=== PATIENT | female | born 1970 | race Caucasian/White ===

== ENCOUNTER 2016-12-27 11:53 | Emergency (ER) | payer BC ==
[2016-12-27 12:02] VITALS: BP 135/87
[2016-12-27] MEDS ORDERED: Sodium Chloride 0.9% 500 ML IV ONE (12:06)
[2016-12-27] MEDS ORDERED: Sodium Chloride 0.9% 10 ML Syringe FLUSH PRN (12:06)
--- NOTE | 2016-12-27 12:17 | EDM.PDOC ---
ED HPI GENERAL MEDICAL PROBLEM - General Chief Complaint: Syncope Stated Complaint: [facility] Time Seen by Provider: 12/27/16 12:03 Source of Information: Reports: Patient, RN Notes Reviewed - History of Present Illness INITIAL COMMENTS - FREE TEXT/NARRATIVE: 46-year-old female has been brought in by ambulance after suffering brief syncopal event. She had been outdoors this morning in the heat watching the parade. She and her family went early so she had been out in the heat and sunshine for about 2-2-1/2 hours. She and her family had then gone to the " dairy barn". He began feeling weak lightheaded and dizzy when standing and apparently did walk into the dairy barn and then "passed out". She states she does not remember well the part about actually walking into the dairy barn. She does remember getting weak lightheaded and dizzy outdoors. She has had some IV fluid while in route to the ED. After lying flat for a while she feels completely back to normal. She's not been having chest pain. No recent abdominal pain nausea vomiting or diarrhea. - Related Data Allergies Allergy/AdvReac Type Severity Reaction Status Date / Time Opioids - Morphine Analogues Allergy Severe Respiratory Verified 06/07/14 05:44 Distress Penicillins Allergy Severe Respiratory Verified 06/07/14 05:44 Distress Home Meds: Home Meds Montelukast [Singulair] 10 mg PO ONETIME 12/27/16 [History] Social & Family History - Tobacco Use Smoking Status *Q: Never Smoker Second Hand Smoke Exposure: No - Alcohol Use Days Per Week of Alcohol Use: 0 - Recreational Drug Use Recreational Drug Use: No ED ROS GENERAL - Review of Systems Review Of Systems: See Below Constitutional: Reports: Diaphoresis (Gone). Denies: Fever, Chills HEENT: Denies: Sinus Problem, Throat Pain Respiratory: Denies: Shortness of Breath Cardiovascular: Reports: Syncope (Brief). Denies: Chest Pain GI/Abdominal: Reports: Nausea. Denies: Abdominal Pain, Diarrhea, Vomiting (Gone ) Musculoskeletal: Denies: Neck Pain, Shoulder Pain, Arm Pain, Back Pain, Leg Pain Skin: Denies: Rash Neurological: Reports: Dizziness (Gone), Weakness (Now better) - Physical Exam Exam: See Below General Appearance: Alert, No Apparent Distress Eye Exam: Bilateral Eye: PERRL Throat/Mouth: Normal Inspection, Normal Oropharynx Head Exam: Atraumatic Neck: Supple, Non-Tender, Full Range of Motion Respiratory/Chest: No Respiratory Distress, Lungs Clear, Normal Breath Sounds Cardiovascular: Regular Rate, Rhythm GI/Abdominal: Soft, Non-Tender. No: Guarding Neuro Exam (Abbreviated): Alert, Oriented, No Motor/Sensory Deficits Back Exam: No: CVA Tenderness (L), CVA Tenderness (R) Extremities: Normal Inspection, Normal Range of Motion Skin Exam: Warm, Dry, Normal Color Course - Vital Signs Last Recorded V/S: Last Vital Signs Temp 98.8 F 12/27/16 11:59 Pulse 99 12/27/16 11:59 Resp 18 12/27/16 11:59 BP 135/87 12/27/16 11:59 Pulse Ox 99 12/27/16 11:59 - Orders/Labs/Meds Orders: Active Orders 24 hr Category Date Time Status Peripheral IV Care [RC] . DIRECTED Care 12/27/16 12:07 Active Sodium Chloride 0.9% [Saline Flush] Med 12/27/16 12:06 Active 10 ml FLUSH ASDIRECTED PRN Peripheral IV Insertion Adult [OM.PC] Stat Oth 12/27/16 12:06 Ordered Medication Orders Sodium Chloride (Saline Flush) 10 ml FLUSH ASDIRECTED PRN PRN Reason: Keep Vein Open Last Admin: 12/27/16 12:20 Dose: 10 ml Labs: Laboratory Tests 12/27/16 12/27/16 Range/Units 12:37 12:37 WBC 8.49 (3.98-10.04) K/mm3 RBC 4.10 (3.98-5.22) M/mm3 Hgb 11.7 (11.2-15.7) gm/L Hct 35.7 (34.1-44.9) % MCV 87.1 (79.4-94.8) fl MCH 28.5 (25.6-32.2) pg MCHC 32.8 (32.2-35.5) g/dl RDW Std Deviation 47.2 H (36.4-46.3) fL Plt Count 249 (182-369) K/mm3 MPV 10.8 (9.4-12.3) fl Neut % (Auto) 71.8 H (34.0-71.1) % Lymph % (Auto) 20.3 (19.3-51.7) % Coffey % (Auto) 6.2 (4.7-12.5) % Eos % (Auto) 1.2 (0.7-5.8) Baso % (Auto) 0.4 (0.1-1.2) % Neut # (Auto) 6.10 (1.56-6.13) K/mm3 Lymph # (Auto) 1.72 (1.18-3.74) K/mm3 Coffey # (Auto) 0.53 H (0.24-0.36) K/mm3 Eos # (Auto) 0.10 (0.04-0.36) K/mm3 Baso # (Auto) 0.03 (0.01-0.08) K/mm3 Sodium 137 (136-145) mEq/L Potassium 3.7 (3.5-5.1) mEq/L Chloride 104 (98-107) mEq/L Carbon Dioxide 21 (21-32) mEq/L Anion Gap 15.7 H (5-15) BUN 8 (7-18) mg/dL Creatinine 1.2 H (0.55-1.02) mg/dL Est Cr Clr Drug Dosing 64.69 mL/min Estimated GFR (MDRD) 49 (>60) mL/min BUN/Creatinine Ratio 6.7 L (14-18) Glucose 102 (74-106) mg/dL Calcium 8.0 L (8.5-10.1) mg/dL Total Bilirubin 0.4 (0.2-1.0) mg/dL AST 16 (15-37) U/L ALT 25 (14-59) U/L Alkaline Phosphatase 39 L (46-116) U/L Total Protein 6.9 (6.4-8.2) g/dl Albumin 3.6 (3.4-5.0) g/dl Globulin 3.3 gm/dL Albumin/Globulin Ratio 1.1 (1-2) Meds: Medications Generic Name Dose Route Start Last Admin Trade Name Freq PRN Reason Stop Dose Admin Sodium Chloride 10 ml 12/27/16 12:06 12/27/16 12:20 Saline Flush FLUSH 10 ml ASDIRECTED PRN Administration Keep Vein Open Discontinued Medications Generic Name Dose Route Start Last Admin Trade Name Freq PRN Reason Stop Dose Admin Sodium Chloride 500 mls @ 999 mls/hr 12/27/16 12:06 12/27/16 12:20 Normal Saline IV 12/27/16 12:36 999 mls/hr .BOLUS ONE Administration - Re-Assessments/Exams Free Text/Narrative Re-Assessment/Exam: 12/27/16 13:44. Resting comfortably, vitals remained normal. Sinus rhythm no ectopy. Departure - Departure Time of Disposition: 13:44 Disposition: Home, Self-Care 01 Condition: Fair Clinical Impression: Dehydration Syncope Qualifiers: Syncope type: unspecified Qualified Code(s): R55 - Syncope and collapse - Discharge Information Forms: ED Department Discharge Additional Instructions: Rest, avoid additional heat exposure today, drink plenty of water to maintain hydration. Your hemoglobin was mildly low at 11.7. an iron supplement once or twice daily should be helpful for that. Follow-up clinic in about 2 weeks for recheck. Return to ED as needed - My Orders Last 24 Hours: My Active Orders 12/27/16 12:06 Sodium Chloride 0.9% [Saline Flush] 10 ml FLUSH ASDIRECTED PRN Peripheral IV Insertion Adult [OM.PC] Stat 12/27/16 12:07 Peripheral IV Care [RC] . DIRECTED - Assessment/Plan Last 24 Hours: My Active Orders 12/27/16 12:06 Sodium Chloride 0.9% [Saline Flush] 10 ml FLUSH ASDIRECTED PRN Peripheral IV Insertion Adult [OM.PC] Stat 12/27/16 12:07 Peripheral IV Care [RC] . DIRECTED
== END 2016-12-27 14:00 | disposition home or self-care (01) ==
LOC: JD.ED 11:53
DX: E86.0 Dehydration (principal); R55 Syncope and collapse; Z88.0 Allergy status to penicillin; Z88.5 Allergy status to narcotic agent
CPT/HCPCS: 36415; 80053; 85025; 99285; J7040; J7050; 99283

== ENCOUNTER 2021-10-02 18:11 | Emergency (ER) | payer BC, OTHER ==
[2021-10-02 18:21] VITALS: BP 149/123; PULSE 117
[2021-10-02] MEDS ORDERED: Sodium Chloride 0.9% 1,000 ML IV STA (18:30)
[2021-10-02] MEDS ORDERED: Ondansetron 4 MG/2 ML SDV IVPUSH ONE ×2 (18:30→19:24)
[2021-10-02] MEDS ORDERED: HYDROmorphone 1 MG/ML Syringe IVPUSH ONE (18:33)
[2021-10-02] MEDS ORDERED: Iopamidol 612 MG/ML 100 ML Bottle IVPUSH ONE (18:36)
[2021-10-02] MEDS ORDERED: Sodium Chloride 0.9% 10 ML Syringe FLUSH ONE (18:36)
[2021-10-02] MEDS: Sodium Chloride 0.9% 10 ML Syringe FLUSH PRN ×2 (18:43→20:18)
[2021-10-02] MEDS ORDERED: Sodium Chloride 0.9% 100 ML IV SCH (18:45)
[2021-10-02 19:14] LABS: CORONAVIRUS COVID-19 NAA NEGATIVE (NEGATIVE)
[2021-10-02] MEDS ORDERED: LORazepam 2 MG/ML SDV IVPUSH STA (19:28)
[2021-10-02] MEDS ORDERED: HYDROmorphone 0.5 MG/0.5 ML Syringe IVPUSH ONE (19:28)
== END 2021-10-02 21:00 | disposition home or self-care (01) ==
LOC: JD.ED 18:11
DX: A08.4 Viral intestinal infection, unspecified (principal); F41.9 Anxiety disorder, unspecified; R73.9 Hyperglycemia, unspecified; Z88.0 Allergy status to penicillin; Z88.5 Allergy status to narcotic agent; Z20.822 Contact with and (suspected) exposure to COVID-19
CPT/HCPCS: 0241U; 36415; 74177; 74177-26; 80053; 81001; 83690; 85025; 87086; 96374; 96375; 96376; 99284-25; 99285; J1170; J2060; J2405; J3490; J7030; Q9967

== ENCOUNTER 2021-10-03 05:52 | Emergency (ER) | payer BC ==
[2021-10-03 06:02] VITALS: BP 139/74; PULSE 109
[2021-10-03] MEDS ORDERED: Metoclopramide 10 MG/2 ML SDV IVPUSH STA (06:07)
[2021-10-03] MEDS ORDERED: LORazepam 2 MG/ML SDV IVPUSH STA (06:07)
[2021-10-03] MEDS ORDERED: Sodium Chloride 0.9% 1,000 ML IV ONE (06:08)
== END 2021-10-03 07:55 | disposition home or self-care (01) ==
LOC: JD.ED 05:52
DX: R10.30 Lower abdominal pain, unspecified (principal); R11.2 Nausea with vomiting, unspecified; E66.9 Obesity, unspecified; Z68.30 Body mass index [BMI] 30.0-30.9, adult; Z88.0 Allergy status to penicillin; Z88.5 Allergy status to narcotic agent; Z28.310 Unvaccinated for COVID-19
CPT/HCPCS: 96374; 96375; 99283-25; 99284; J2060; J2765; J7030

== ENCOUNTER 2022-04-16 01:27 | Emergency (ER) | payer BC ==
[2022-04-16] MEDS ORDERED: LORazepam 2 MG/ML SDV IVPUSH STA (02:18)
[2022-04-16] MEDS ORDERED: Sodium Chloride 0.9% 1,000 ML IV ONE (02:18)
[2022-04-16] MEDS ORDERED: Metoclopramide 10 MG/2 ML SDV IVPUSH STA (02:18)
[2022-04-16 04:16] VITALS: BP 187/111; PULSE 97
== END 2022-04-16 04:33 | disposition home or self-care (01) ==
LOC: JD.ED 01:27
DX: F41.9 Anxiety disorder, unspecified (principal); R11.2 Nausea with vomiting, unspecified; E66.9 Obesity, unspecified; Z68.27 Body mass index [BMI] 27.0-27.9, adult; Z88.0 Allergy status to penicillin; Z88.6 Allergy status to analgesic agent; Z86.16 Personal history of COVID-19
CPT/HCPCS: 96361; 96374; 96375; 99283; J2060; J2765; J7030

== ENCOUNTER 2022-05-15 08:10 | Inpatient (IN) | payer BC ==
[2022-05-15] MEDS ORDERED: Acetaminophen/HYDROcodone 325-5 MG Tab PO ONE (10:41)
[2022-05-15] MEDS ORDERED: LORazepam 2 MG/ML SDV ONE (12:20)
[2022-05-15] MEDS ORDERED: Sodium Chloride 0.9% 10 ML Syringe FLUSH PRN (12:29)
[2022-05-15] MEDS ORDERED: LORazepam 2 MG/ML SDV IVPUSH ONE (12:29)
[2022-05-15] MEDS ORDERED: Ondansetron 4 MG/2 ML SDV IV PRN (15:56)
[2022-05-15] MEDS ORDERED: Acetaminophen 325 MG Tab PO PRN (15:56)
[2022-05-15] MEDS ORDERED: LORazepam 2 MG/ML SDV IVPUSH PRN ×2 (15:59→16:00)
[2022-05-15] MEDS ORDERED: Citalopram 20 MG Tab PO SCH (18:00)
[2022-05-15] MEDS: Folic Acid 1 MG Tab PO SCH (18:33)
[2022-05-15] MEDS: chlordiazePOXIDE 10 MG Cap PO SCH (18:33)
[2022-05-15] MEDS: Thiamine 100 MG Tab PO SCH (18:34)
[2022-05-15] MEDS: NS + KCl 20mEq/L 1,000 ML IV SCH (18:38)
[2022-05-15] MEDS: Diphenhydramine/Lidocaine/MagAl/Simethicone 119 ML Bottle PO PRN (20:37)
[2022-05-16] MEDS: Diphenhydramine/Lidocaine/MagAl/Simethicone 119 ML Bottle PO PRN ×3 (00:10→09:10)
[2022-05-16] MEDS: chlordiazePOXIDE 10 MG Cap PO SCH (01:43)
[2022-05-16] MEDS: NS + KCl 20mEq/L 1,000 ML IV SCH (02:06)
[2022-05-16] MEDS: Losartan 50 MG Tab PO SCH ×2 (06:26→08:29)
[2022-05-16] MEDS: Folic Acid 1 MG Tab PO SCH (08:28)
[2022-05-16] MEDS: Thiamine 100 MG Tab PO SCH (08:29)
[2022-05-16] MEDS ORDERED: Gabapentin 100 MG Cap PO SCH (09:00)
[2022-05-16] MEDS ORDERED: Citalopram 20 MG Tab PO SCH (09:00)
[2022-05-16] MEDS ORDERED: Venlafaxine 75 MG Cap.ER PO SCH (09:00)
[2022-05-16] MEDS ORDERED: Montelukast 10 MG Tab PO SCH (09:00)
[2022-05-16 12:16] VITALS: BP 177/136; PULSE 85
== END 2022-05-16 13:10 | disposition home or self-care (01) | DRG 775 ==
LOC: JD.ED 08:10 → JD.ICU 15:35
PROVIDERS: ADMIT Internal Medicine; ATTEND Internal Medicine
DX: F10.239 Alcohol dependence with withdrawal, unspecified (principal); R56.9 Unspecified convulsions; S00.83XA Contusion of other part of head, initial encounter; S01.512A Laceration without foreign body of oral cavity, initial encounter; F41.0 Panic disorder [episodic paroxysmal anxiety]; Z88.5 Allergy status to narcotic agent; Z88.0 Allergy status to penicillin; Z79.899 Other long term (current) drug therapy; Z86.16 Personal history of COVID-19; X58.XXXA Exposure to other specified factors, initial encounter
CPT/HCPCS: 36415; 70450; 70450-26; 80048; 80053; 80306; 80307; 83735; 84100; 85025; 93005; A9270-GY; J2060; J3480

== ENCOUNTER 2022-11-08 18:07 | Inpatient (IN) | payer BC ==
[2022-11-08] MEDS ORDERED: Sodium Chloride 0.9% 1,000 ML IV ONE ×2 (18:27→19:38)
[2022-11-08] MEDS ORDERED: Ondansetron 4 MG/2 ML SDV IVPUSH ONE (18:27)
[2022-11-08] MEDS ORDERED: Sodium Chloride 0.9% 10 ML Syringe FLUSH PRN (18:27)
[2022-11-08] MEDS ORDERED: LORazepam 2 MG/ML SDV IVPUSH ONE (18:29)
[2022-11-08 18:36] LABS: EOSINOPHILS PERCENT AUTO 0 (0.7-5.8); HEMATOCRIT 45.9 % (34.1-44.9); HEMOGLOBIN 15.8 gm/dl (11.2-15.7); IMMATURE GRAN ABSOLUTE AUTO 0.04 K/mm3 (0.00-0.10); IMMATURE GRAN PERCENT AUTO 0.3 % (<=1.0); LYMPHOCYTES ABSOLUTE AUTO 0.46 K/mm3 (1.18-3.74); LYMPHOCYTES PERCENT AUTO 3.6 % (19.3-51.7); MEAN CORPUSCULAR HEMOGLOBIN 33.3 pg (25.6-32.2); MEAN CORPUSCULAR HGB CONC 34.4 g/dl (32.2-35.5); MEAN CORPUSCULAR VOLUME 96.8 fl (79.4-94.8); MEAN PLATELET VOLUME 11.2 fl (9.4-12.3); MONOCYTES ABSOLUTE AUTO 1.09 K/mm3 (0.24-0.36); MONOCYTES PERCENT AUTO 8.4 % (4.7-12.5); NEUTROPHILS ABSOLUTE AUTO 11.33 K/mm3 (1.56-6.13); NEUTROPHILS PERCENT AUTO 87.7 % (34.0-71.1); PLATELET COUNT,PLT 170 K/mm3 (182-369); RED BLOOD CELL COUNT 4.74 M/mm3 (3.98-5.22); WHITE BLOOD CELL COUNT,WBC 12.92 K/mm3 (3.98-10.04)
[2022-11-08] MEDS ORDERED: Iopamidol 612 MG/ML 100 ML Bottle IVPUSH ONE ×2 (18:42→19:16)
[2022-11-08 19:01] LABS: ALANINE AMINOTRANSFERASE,ALT 140 U/L (14-59); ALBUMIN 4.3 g/dl (3.4-5.0); ALKALINE PHOSPHATASE 81 U/L (46-116); ANION GAP 17.8 (5-15); ASPARTATE AMNIOTRANSFERASE,AST 129 U/L (15-37); BILIRUBIN TOTAL 4.2 mg/dL (0.2-1.0); BLOOD UREA NITROGEN,BUN 10 mg/dL (7-18); CALCIUM 9.7 mg/dL (8.5-10.1); CARBON DIOXIDE,CO2 26 mEq/L (21-32); CHLORIDE,CL 91 mEq/L (98-107); ESTIMATED GFR 69 mL/min (>60); GLUCOSE RANDOM 165 mg/dL (70-99); MAGNESIUM 1.3 mg/dL (1.8-2.4); POTASSIUM,K 2.8 mEq/L (3.5-5.1); SODIUM,NA 132 mEq/L (136-145)
[2022-11-08 19:04] LABS: C-REACTIVE PROTEIN 12.9 mg/dL (<1.0)
[2022-11-08 19:30] LABS: LIPASE 2878 U/L (73-393)
[2022-11-08] MEDS ORDERED: Magnesium Sulfate/Water 2 GM in Premix Bag 1 BAG IV ONE (19:33)
[2022-11-08] MEDS ORDERED: Ketorolac 30 MG/ML SDV IVPUSH ONE (19:33)
[2022-11-08] MEDS ORDERED: HYDROmorphone 0.5 MG/0.5 ML Syringe IVPUSH ONE (19:43)
[2022-11-08] MEDS: Potassium Chloride 10 MEQ in Premix Bag 1 BAG IV SCH ×4 (19:49→23:35)
[2022-11-08 19:54] LABS: GAMMA GLUTAMYL TRANSFERASE,GGT 2329 U/L (5-55)
[2022-11-08 19:56] LABS: PROTEIN TOTAL,TP 8.7 g/dl (6.4-8.2)
[2022-11-08] MEDS ORDERED: Sodium Chloride 0.9% 1,000 ML IV SCH (20:45)
[2022-11-08] MEDS: Ondansetron 4 MG/2 ML SDV IV PRN (23:00)
[2022-11-08] MEDS: HYDROmorphone 0.5 MG/0.5 ML Syringe IVPUSH PRN (23:00)
[2022-11-09] MEDS: Thiamine 100 MG in Sodium Chloride 0.9% 100 ML IV SCH ×2 (00:53→08:08)
[2022-11-09] MEDS: HYDROmorphone 0.5 MG/0.5 ML Syringe IVPUSH PRN ×10 (01:09→23:43)
[2022-11-09] MEDS: NS + KCl 20mEq/L 1,000 ML IV SCH ×3 (01:30→17:15)
[2022-11-09] MEDS: Ondansetron 4 MG/2 ML SDV IV PRN ×3 (05:30→19:42)
[2022-11-09 05:54] LABS: HEMATOCRIT 40.7 % (34.1-44.9); MEAN CORPUSCULAR HEMOGLOBIN 33.6 pg (25.6-32.2); MEAN CORPUSCULAR HGB CONC 33.7 g/dl (32.2-35.5); MEAN CORPUSCULAR VOLUME 99.8 fl (79.4-94.8); MEAN PLATELET VOLUME 11.4 fl (9.4-12.3); PLATELET COUNT,PLT 126 K/mm3 (182-369); RED BLOOD CELL COUNT 4.08 M/mm3 (3.98-5.22)
[2022-11-09 05:58] LABS: A/G RATIO 0.9 (1-2); ALBUMIN 3.1 g/dl (3.4-5.0); BILIRUBIN TOTAL 3.4 mg/dL (0.2-1.0); CREATININE 0.7 mg/dL (0.55-1.02); EST CRCL DRUG DOSING (CG) 103.97 mL/min; MAGNESIUM 1.8 mg/dL (1.8-2.4); PROTEIN TOTAL,TP 6.5 g/dl (6.4-8.2)
[2022-11-09 05:59] LABS: HEMOGLOBIN 13.7 gm/dl (11.2-15.7)
[2022-11-09] MEDS ORDERED: Potassium Chloride 20 MEQ Tab.ER PO ONE (06:25)
[2022-11-09] MEDS: Potassium Chloride 10 MEQ in Premix Bag 1 BAG IV SCH ×4 (06:41→10:10)
[2022-11-09] MEDS: Enoxaparin 40 MG/0.4 ML Syringe SUBCUT SCH (08:05)
[2022-11-09] MEDS: Montelukast 10 MG Tab PO SCH (09:03)
[2022-11-09] MEDS: Venlafaxine 75 MG Cap.ER PO SCH (09:03)
[2022-11-09] MEDS: oxyCODONE 5 MG Tab PO PRN ×3 (11:42→20:40)
[2022-11-09] MEDS: LORazepam 2 MG/ML SDV IV PRN ×2 (12:26→16:23)
[2022-11-09] MEDS: Thiamine 100 MG Tab PO SCH ×2 (19:38→21:52)
[2022-11-09] MEDS: LORazepam 1 MG Tab PO PRN ×2 (20:34→22:29)
[2022-11-09] MEDS ORDERED: LORazepam 0.5 MG Tab PO SCH (22:00)
[2022-11-10] MEDS: oxyCODONE 5 MG Tab PO PRN ×3 (01:19→20:29)
[2022-11-10] MEDS: LORazepam 1 MG Tab PO PRN ×3 (01:20→22:54)
[2022-11-10] MEDS: Ondansetron 4 MG/2 ML SDV IV PRN ×3 (01:21→17:00)
[2022-11-10] MEDS: NS + KCl 20mEq/L 1,000 ML IV SCH ×3 (01:22→20:34)
[2022-11-10] MEDS: HYDROmorphone 0.5 MG/0.5 ML Syringe IVPUSH PRN ×8 (01:50→22:50)
[2022-11-10 06:02] LABS: HEMATOCRIT 41.7 % (34.1-44.9); HEMOGLOBIN 13.4 gm/dl (11.2-15.7); MEAN CORPUSCULAR HEMOGLOBIN 33.3 pg (25.6-32.2); MEAN CORPUSCULAR HGB CONC 32.1 g/dl (32.2-35.5); MEAN PLATELET VOLUME 11.9 fl (9.4-12.3); PLATELET COUNT,PLT 117 K/mm3 (182-369); RED BLOOD CELL COUNT 4.02 M/mm3 (3.98-5.22); WHITE BLOOD CELL COUNT,WBC 13.36 K/mm3 (3.98-10.04)
[2022-11-10 06:05] LABS: A/G RATIO 0.7 (1-2); ALBUMIN 2.9 g/dl (3.4-5.0); BILIRUBIN TOTAL 3.4 mg/dL (0.2-1.0); CREATININE 0.7 mg/dL (0.55-1.02); EST CRCL DRUG DOSING (CG) 103.97 mL/min; MAGNESIUM 1.8 mg/dL (1.8-2.4); PROTEIN TOTAL,TP 7.1 g/dl (6.4-8.2)
[2022-11-10 06:06] LABS: MEAN CORPUSCULAR VOLUME 103.7 fl (79.4-94.8)
[2022-11-10] MEDS: Venlafaxine 75 MG Cap.ER PO SCH (08:17)
[2022-11-10] MEDS: Montelukast 10 MG Tab PO SCH (08:17)
[2022-11-10] MEDS: Enoxaparin 40 MG/0.4 ML Syringe SUBCUT SCH (08:17)
[2022-11-10] MEDS ORDERED: Thiamine 200 MG/2 ML MDV IVPUSH SCH (09:00)
[2022-11-10] MEDS ORDERED: Docusate Sodium 100 MG Cap PO PRN (10:48)
[2022-11-10] MEDS: Polyethylene Glycol 3350 Powder 17 GM Packet PO SCH (11:29)
[2022-11-10 14:32] LABS: APPEARANCE,URINE SLT CLOUDY (Clear); BILIRUBIN,URINE 3+ (Negative); COLOR,URINE AMBER (Yellow); GLUCOSE,URINE NEGATIVE (Negative); KETONES,URINE 1+ (Negative); LEUKOCYTE ESTERASE,URINE 1+ (Negative); NITRITE,URINE NEGATIVE (Negative); OCCULT BLOOD,URINE TRACE-INTACT (Negative); PROTEIN,URINE 2+ (Negative)
[2022-11-10 14:58] LABS: BACTERIA,URINE MODERATE /hpf (FEW); MUCUS,URINE RARE /hpf (FEW); RBC,URINE 0-5 /hpf (0-5); SQUAMOUS EPITHELIAL CELLS,UR 0-5 /hpf (0-5); WBC,URINE 40-50 /hpf (0-5)
[2022-11-10] MEDS ORDERED: Levofloxacin/Dextrose 5%-Water 750 MG in Premix Bag 1 BAG IV SCH (15:00)
[2022-11-10] MEDS: Thiamine 100 MG Tab PO SCH (20:30)
[2022-11-11] MEDS: HYDROmorphone 0.5 MG/0.5 ML Syringe IVPUSH PRN ×4 (02:31→16:57)
[2022-11-11 05:59] LABS: A/G RATIO 0.7 (1-2); ALBUMIN 2.6 g/dl (3.4-5.0); ANION GAP 12.4 (5-15); BILIRUBIN TOTAL 3.9 mg/dL (0.2-1.0); CALCIUM 8.3 mg/dL (8.5-10.1); CREATININE 0.6 mg/dL (0.55-1.02); EST CRCL DRUG DOSING (CG) 121.3 mL/min; MAGNESIUM 1.7 mg/dL (1.8-2.4); POTASSIUM,K 3.4 mEq/L (3.5-5.1); PROTEIN TOTAL,TP 6.5 g/dl (6.4-8.2)
[2022-11-11] MEDS: oxyCODONE 5 MG Tab PO PRN ×4 (06:02→20:42)
[2022-11-11 06:05] LABS: HEMATOCRIT 36.5 % (34.1-44.9); MEAN CORPUSCULAR HEMOGLOBIN 33.2 pg (25.6-32.2); MEAN CORPUSCULAR HGB CONC 32.6 g/dl (32.2-35.5); MEAN PLATELET VOLUME 11.7 fl (9.4-12.3); PLATELET COUNT,PLT 123 K/mm3 (182-369); RED BLOOD CELL COUNT 3.58 M/mm3 (3.98-5.22); WHITE BLOOD CELL COUNT,WBC 9.95 K/mm3 (3.98-10.04)
[2022-11-11 06:15] LABS: HEMOGLOBIN 11.9 gm/dl (11.2-15.7)
[2022-11-11] MEDS ORDERED: Magnesium Sulfate/Water 2 GM in Premix Bag 1 BAG IV ONE (06:26)
[2022-11-11] MEDS: Enoxaparin 40 MG/0.4 ML Syringe SUBCUT SCH (08:27)
[2022-11-11] MEDS: Potassium Chloride 20 MEQ Tab.ER PO SCH ×2 (08:28→20:42)
[2022-11-11] MEDS: Polyethylene Glycol 3350 Powder 17 GM Packet PO SCH (08:29)
[2022-11-11] MEDS: Montelukast 10 MG Tab PO SCH (08:29)
[2022-11-11] MEDS: Venlafaxine 75 MG Cap.ER PO SCH (08:29)
[2022-11-11] MEDS ORDERED: hydrALAZINE 20 MG/ML SDV IVPUSH ONE ×2 (08:30→16:23)
[2022-11-11] MEDS: Ondansetron 4 MG/2 ML SDV IV PRN ×2 (08:30→14:54)
[2022-11-11] MEDS: amLODIPine 5 MG Tab PO SCH (08:45)
[2022-11-11] MEDS: LORazepam 1 MG Tab PO PRN (10:08)
[2022-11-11] MEDS: Levofloxacin 750 MG Tab PO SCH (15:16)
[2022-11-11] MEDS ORDERED: Prochlorperazine 10 MG/2 ML SDV IVPUSH PRN (17:41)
[2022-11-11] MEDS: Thiamine 100 MG Tab PO SCH (20:42)
[2022-11-12] MEDS: LORazepam 1 MG Tab PO PRN (00:26)
[2022-11-12 00:29] VITALS: PULSE 97
[2022-11-12 07:46] LABS: A/G RATIO 0.6 (1-2); ALBUMIN 2.3 g/dl (3.4-5.0); ANION GAP 13.1 (5-15); CALCIUM 8.3 mg/dL (8.5-10.1); CREATININE 0.5 mg/dL (0.55-1.02); EST CRCL DRUG DOSING (CG) 145.56 mL/min; POTASSIUM,K 3.1 mEq/L (3.5-5.1); PROTEIN TOTAL,TP 6.2 g/dl (6.4-8.2)
[2022-11-12] MEDS: Venlafaxine 75 MG Cap.ER PO SCH (08:26)
[2022-11-12] MEDS: Montelukast 10 MG Tab PO SCH (08:35)
[2022-11-12] MEDS: Polyethylene Glycol 3350 Powder 17 GM Packet PO SCH ×2 (08:35→09:01)
[2022-11-12] MEDS: amLODIPine 5 MG Tab PO SCH (08:36)
[2022-11-12] MEDS: Enoxaparin 40 MG/0.4 ML Syringe SUBCUT SCH (08:36)
[2022-11-12 08:37] VITALS: BP 195/114
[2022-11-12] MEDS ORDERED: Potassium Chloride 20 MEQ Tab.ER PO SCH (09:00)
[2022-11-12] MEDS ORDERED: hydrALAZINE 20 MG/ML SDV IVPUSH ONE (13:30)
[2022-11-12] MEDS: Levofloxacin 750 MG Tab PO SCH (16:19)
== END 2022-11-12 16:00 | disposition home or self-care (01) | DRG 282 ==
LOC: JD.ED 18:07 → JD.MS 20:18
PROVIDERS: ADMIT Internal Medicine; ATTEND Internal Medicine
DX: K85.20 Alcohol induced acute pancreatitis without necrosis or infection (principal); E87.1 Hypo-osmolality and hyponatremia; F41.1 Generalized anxiety disorder; E87.6 Hypokalemia; E83.42 Hypomagnesemia; F10.10 Alcohol abuse, uncomplicated; E66.9 Obesity, unspecified; K76.0 Fatty (change of) liver, not elsewhere classified; Z79.899 Other long term (current) drug therapy; Z88.0 Allergy status to penicillin; Z88.5 Allergy status to narcotic agent; Z68.28 Body mass index [BMI] 28.0-28.9, adult; Z98.890 Other specified postprocedural states; Z90.89 Acquired absence of other organs; Z56.0 Unemployment, unspecified
CPT/HCPCS: 36415; 71045; 71045-26; 74177; 74177-26; 80053; 80307; 81001; 82947; 82977; 83690; 83735; 85025; 85027; 86140; 87086; 94761; 96361; 96365; 96368; 96375; 99284; 99285-25; A9270-GY; J0360; J0780; J1170; J1650; J1885; J1956; J2060; J2405; J3411; J3475; J3480; J3490; J7030; Q9967

== ENCOUNTER 2023-07-31 07:50 | Inpatient (IN) | payer BC, MEDICAID ==
[2023-07-31] MEDS: Sodium Chloride 0.9% 1,000 ML IV STA (08:15)
[2023-07-31] MEDS: Sodium Chloride 0.9% 10 ML Syringe FLUSH PRN ×2 (08:15→08:16)
[2023-07-31] MEDS: Ondansetron 4 MG/2 ML SDV IVPUSH ONE (08:26)
[2023-07-31] MEDS: HYDROmorphone 1 MG/ML Syringe IVPUSH ONE ×2 (08:26→14:01)
[2023-07-31 08:33] LABS: BASOPHILS PERCENT AUTO 0.2 % (0.0-1.0); EOSINOPHILS PERCENT AUTO 0.3 % (0.0-6.0); HEMATOCRIT 46.1 % (37.0-47.0); HEMOGLOBIN 16.5 gm/dl (12.0-16.0); LYMPHOCYTES ABSOLUTE AUTO 0.5 K/mm3 (1.0-4.8); LYMPHOCYTES PERCENT AUTO 4.7 % (24.0-44.0); MEAN CORPUSCULAR HEMOGLOBIN 33.3 pg (28.0-32.0); MEAN CORPUSCULAR HGB CONC 35.8 g/dl (32.0-36.0); MEAN CORPUSCULAR VOLUME 92.9 fl (83.0-99.0); MEAN PLATELET VOLUME 11.6 fl (9.4-12.3); MONOCYTES ABSOLUTE AUTO 0.6 K/mm3 (0.0-0.8); MONOCYTES PERCENT AUTO 5.8 % (0.0-8.0); PLATELET COUNT,PLT 177 K/mm3 (150-400); RED BLOOD CELL COUNT 4.96 M/mm3 (4.10-5.30); WHITE BLOOD CELL COUNT,WBC 10.18 K/mm3 (3.9-11.3)
[2023-07-31] MEDS: Iopamidol 612 MG/ML 100 ML Bottle IVPUSH ONE (08:42)
[2023-07-31 08:47] LABS: A/G RATIO 1.1 (1-2); ALBUMIN 4.6 g/dl (3.4-5.0); BILIRUBIN TOTAL 3.8 mg/dL (0.2-1.0); BUN/CREATININE RATIO 12.2 (14-18); CALCIUM 9.8 mg/dL (8.5-10.1); CREATININE 0.9 mg/dL (0.55-1.02); EST CRCL DRUG DOSING (CG) 79.97 mL/min; PROTEIN TOTAL,TP 8.7 g/dl (6.4-8.2)
[2023-07-31] MEDS: HYDROmorphone 0.5 MG/0.5 ML Syringe IVPUSH ONE (09:39)
[2023-07-31] MEDS ORDERED: LORazepam 0.5 MG Tab PO PRN (10:01)
[2023-07-31] MEDS ORDERED: oxyCODONE 5 MG Tab PO PRN (10:01)
[2023-07-31 10:16] LABS: MAGNESIUM 1.6 mg/dL (1.8-2.4); PHOSPHORUS 3.5 mg/dL (2.6-4.7)
[2023-07-31 10:33] LABS: CORONAVIRUS COVID-19 NAA NEGATIVE (NEGATIVE); INFLUENZA A NAA NEGATIVE (NEGATIVE)
[2023-07-31 10:37] LABS: HEMOGLOBIN A1C 6.8 %
[2023-07-31] MEDS: oxyCODONE 5 MG Tab PO PRN (11:32)
[2023-07-31] MEDS: Potassium Chloride 10 MEQ in Premix Bag 1 BAG IV ONE (11:32)
[2023-07-31] MEDS: Montelukast 10 MG Tab PO SCH (11:32)
[2023-07-31] MEDS: Sodium Chloride 0.9% 1,000 ML IV SCH (11:33)
[2023-07-31] MEDS: Venlafaxine 75 MG Cap.ER PO SCH (11:33)
[2023-07-31] MEDS: Pantoprazole 40 MG Vial IVPUSH SCH (11:33)
[2023-07-31] MEDS: Insulin Lispro 100 Unit/ML 3 ML KwikPen SUBCUT SCH (11:34)
[2023-07-31 12:01] LABS: APPEARANCE,URINE CLEAR (Clear); BILIRUBIN,URINE 2+ (Negative); COLOR,URINE DARK YELLOW (Yellow); GLUCOSE,URINE NEGATIVE (Negative); KETONES,URINE 4+ (Negative); LEUKOCYTE ESTERASE,URINE NEGATIVE (Negative); NITRITE,URINE NEGATIVE (Negative); OCCULT BLOOD,URINE TRACE-LYSED (Negative); PROTEIN,URINE 1+ (Negative); UROBILINOGEN,URINE 0.2 (0.2-1.0)
[2023-07-31 12:08] LABS: AMORPHOUS SEDIMENT,URINE FEW /hpf (NOT SEEN); BACTERIA,URINE FEW /hpf (FEW); EPITHELIAL CELLS,URINE 0-5 /hpf (0-5); MUCUS,URINE MODERATE /hpf (FEW); WBC,URINE 0-5 /hpf (0-5)
[2023-07-31] MEDS: HYDROmorphone 0.5 MG/0.5 ML Syringe IVPUSH PRN (12:42)
[2023-07-31] MEDS: Ondansetron 4 MG Tab.DIS PO PRN (12:43)
[2023-07-31] MEDS: valACYclovir 500 MG Tab PO SCH (16:20)
[2023-07-31] MEDS: Acetaminophen 325 MG Tab PO PRN (20:27)
[2023-07-31] MEDS: HYDROmorphone 1 MG/ML Syringe IVPUSH PRN (22:03)
[2023-07-31] MEDS: Zolpidem 10 MG Tab PO SCH (23:43)
[2023-08-01 05:32] LABS: HEMATOCRIT 43.1 % (37.0-47.0); MEAN CORPUSCULAR HEMOGLOBIN 33.3 pg (28.0-32.0); MEAN CORPUSCULAR HGB CONC 34.3 g/dl (32.0-36.0); MEAN PLATELET VOLUME 11.4 fl (9.4-12.3); PLATELET COUNT,PLT 129 K/mm3 (150-400); RED BLOOD CELL COUNT 4.44 M/mm3 (4.10-5.30); WHITE BLOOD CELL COUNT,WBC 12.87 K/mm3 (3.9-11.3)
[2023-08-01 05:35] LABS: HEMOGLOBIN 14.8 gm/dl (12.0-16.0); MEAN CORPUSCULAR VOLUME 97.1 fl (83.0-99.0)
[2023-08-01 06:02] LABS: A/G RATIO 0.9 (1-2); ALBUMIN 3.3 g/dl (3.4-5.0); ANION GAP 17.2 (5-15); BILIRUBIN TOTAL 3.1 mg/dL (0.2-1.0); BUN/CREATININE RATIO 12.9 (14-18); CALCIUM 8.5 mg/dL (8.5-10.1); CREATININE 0.7 mg/dL (0.55-1.02); EST CRCL DRUG DOSING (CG) 102.82 mL/min; POTASSIUM,K 3.2 mEq/L (3.5-5.1)
[2023-08-01] MEDS: amLODIPine 5 MG Tab PO SCH (08:08)
[2023-08-01] MEDS ORDERED: hydrALAZINE 20 MG/ML SDV IVPUSH PRN (10:03)
[2023-08-01] MEDS: Potassium Chloride 10 MEQ in Premix Bag 1 BAG IV ONE (11:28)
[2023-08-01] MEDS: Magnesium Sulfate/Water 2 GM/50 ML BAG IV ONE ×2 (12:41→13:11)
[2023-08-01] MEDS: Insulin Lispro 100 Unit/ML 3 ML KwikPen SUBCUT SCH (23:29)
[2023-08-02] MEDS: Insulin Lispro 100 Unit/ML 3 ML KwikPen SUBCUT SCH (00:12)
[2023-08-02 05:45] LABS: HEMOGLOBIN 13.4 gm/dl (12.0-16.0); MEAN CORPUSCULAR HEMOGLOBIN 33.7 pg (28.0-32.0); MEAN CORPUSCULAR HGB CONC 34.4 g/dl (32.0-36.0); MEAN PLATELET VOLUME 11.2 fl (9.4-12.3); PLATELET COUNT,PLT 128 K/mm3 (150-400); RED BLOOD CELL COUNT 3.98 M/mm3 (4.10-5.30); WHITE BLOOD CELL COUNT,WBC 10.08 K/mm3 (3.9-11.3)
[2023-08-02 06:14] LABS: ANION GAP 11.8 (5-15); CALCIUM 8.5 mg/dL (8.5-10.1); CREATININE 0.7 mg/dL (0.55-1.02); EST CRCL DRUG DOSING (CG) 102.82 mL/min; POTASSIUM,K 2.8 mEq/L (3.5-5.1)
[2023-08-02] MEDS: Heparin Sodium 5,000 Units/ML Vial SUBCUT SCH (14:54)
[2023-08-02] MEDS: Potassium Bicarbonate/Cit Ac 20 MEQ Effervescent Tab PO ONE (14:54)
[2023-08-02] MEDS: Potassium Chloride 20 MEQ Tab.ER PO ONE (17:08)
[2023-08-03] MEDS: Polyethylene Glycol 3350 Powder 17 GM Packet PO ONE (00:07)
[2023-08-03 06:12] LABS: BASOPHILS PERCENT AUTO 0.6 % (0.0-1.0); EOSINOPHILS ABSOLUTE AUTO 0.1 K/mm3 (0.0-0.4); EOSINOPHILS PERCENT AUTO 1.6 % (0.0-6.0); HEMOGLOBIN 12.9 gm/dl (12.0-16.0); IMMATURE GRAN ABSOLUTE AUTO 0.15 K/mm3 (0.00-0.05); IMMATURE GRAN PERCENT AUTO 2.1 % (0.0-0.4); LYMPHOCYTES ABSOLUTE AUTO 1.1 K/mm3 (1.0-4.8); LYMPHOCYTES PERCENT AUTO 14.9 % (24.0-44.0); MEAN CORPUSCULAR HEMOGLOBIN 33.2 pg (28.0-32.0); MEAN CORPUSCULAR HGB CONC 34.9 g/dl (32.0-36.0); MEAN CORPUSCULAR VOLUME 95.1 fl (83.0-99.0); MEAN PLATELET VOLUME 10.8 fl (9.4-12.3); MONOCYTES ABSOLUTE AUTO 1.1 K/mm3 (0.0-0.8); MONOCYTES PERCENT AUTO 14.9 % (0.0-8.0); NEUTROPHILS ABSOLUTE AUTO 4.6 K/mm3 (1.8-7.7); NEUTROPHILS PERCENT AUTO 65.9 % (41.0-71.0); PLATELET COUNT,PLT 149 K/mm3 (150-400); RED BLOOD CELL COUNT 3.89 M/mm3 (4.10-5.30); WHITE BLOOD CELL COUNT,WBC 7.04 K/mm3 (3.9-11.3)
[2023-08-03 06:26] LABS: A/G RATIO 0.7 (1-2); ALBUMIN 2.6 g/dl (3.4-5.0); ANION GAP 10.5 (5-15); BILIRUBIN TOTAL 2.4 mg/dL (0.2-1.0); CALCIUM 8.6 mg/dL (8.5-10.1); CREATININE 0.5 mg/dL (0.55-1.02); EST CRCL DRUG DOSING (CG) 143.94 mL/min; PROTEIN TOTAL,TP 6.4 g/dl (6.4-8.2)
[2023-08-03 06:31] LABS: POTASSIUM,K 2.5 mEq/L (3.5-5.1)
[2023-08-03] MEDS: Potassium Chloride 20 MEQ Tab.ER PO ONE (12:23)
[2023-08-03 16:52] VITALS: BP 179/111; PULSE 79
== END 2023-08-03 16:46 | disposition home or self-care (01) | DRG 439 ==
LOC: JD.ED 07:50 → JD.MS 09:49
PROVIDERS: ADMIT Internal Medicine; ATTEND Internal Medicine
DX: K85.20 Alcohol induced acute pancreatitis without necrosis or infection (principal); E87.1 Hypo-osmolality and hyponatremia; F10.139 Alcohol abuse with withdrawal, unspecified; F41.9 Anxiety disorder, unspecified; E66.9 Obesity, unspecified; F10.10 Alcohol abuse, uncomplicated; Z68.26 Body mass index [BMI] 26.0-26.9, adult; E87.6 Hypokalemia; R74.01 Elevation of levels of liver transaminase levels; F32.A Depression, unspecified; R56.9 Unspecified convulsions; E11.9 Type 2 diabetes mellitus without complications; Z88.0 Allergy status to penicillin; Z88.5 Allergy status to narcotic agent; Z79.899 Other long term (current) drug therapy; Z90.89 Acquired absence of other organs; Z68.28 Body mass index [BMI] 28.0-28.9, adult; Z86.16 Personal history of COVID-19
CPT/HCPCS: 0240U; 36415; 74177; 74177-26; 80048; 80053; 80307; 81001; 82947; 83036; 83690; 83735; 84100; 84132; 85025; 85027; 96365; 96375; 96376; 99284; 99284-25; A9270-GY; C9113; J1170; J1644; J1815; J2405; J3475; J3480; J3490; J7030; Q9967

== ENCOUNTER 2025-01-07 17:45 | Inpatient (IN) | payer MEDICAID ==
[2025-01-07 18:14] LABS: BASOPHILS ABSOLUTE AUTO 0.1 K/mm3 (0.0-0.2); BASOPHILS PERCENT AUTO 0.4 % (0.0-1.0); EOSINOPHILS ABSOLUTE AUTO 0.1 K/mm3 (0.0-0.4); EOSINOPHILS PERCENT AUTO 0.4 % (0.0-6.0); IMMATURE GRAN ABSOLUTE AUTO 0.08 K/mm3 (0.00-0.05); IMMATURE GRAN PERCENT AUTO 0.6 % (0.0-0.4); LYMPHOCYTES ABSOLUTE AUTO 0.8 K/mm3 (1.0-4.8); LYMPHOCYTES PERCENT AUTO 6.1 % (24.0-44.0); MEAN PLATELET VOLUME 9.8 fl (9.4-12.3); MONOCYTES ABSOLUTE AUTO 0.8 K/mm3 (0.0-0.8); MONOCYTES PERCENT AUTO 5.7 % (0.0-8.0); NEUTROPHILS ABSOLUTE AUTO 11.6 K/mm3 (1.8-7.7); NEUTROPHILS PERCENT AUTO 86.8 % (41.0-71.0); NRBC ABSOLUTE 0.00 (0.00-0.02); NRBC PERCENT 0.0 % (0.0-0.2); RED BLOOD CELL COUNT 4.37 M/mm3 (4.10-5.30); WHITE BLOOD CELL COUNT,WBC 13.35 K/mm3 (3.9-11.3)
[2025-01-07 18:24] LABS: PLATELET COUNT,PLT 349 K/mm3 (150-400)
[2025-01-07 18:30] LABS: APPEARANCE,URINE CLEAR (Clear); GLUCOSE,URINE NEGATIVE (Negative); OCCULT BLOOD,URINE NEGATIVE (Negative)
[2025-01-07 18:33] LABS: A/G RATIO 1.3 (1-2); ALANINE AMINOTRANSFERASE,ALT 40.0 U/L (14-59); ASPARTATE AMNIOTRANSFERASE,AST 28.0 U/L (15-37); BILIRUBIN TOTAL 0.6 mg/dL (0.2-1.0); BLOOD UREA NITROGEN,BUN 11.0 mg/dL (7-18); CARBON DIOXIDE,CO2 23.0 mEq/L (21-32); CREATININE 0.8 mg/dL (0.55-1.02); EST CRCL DRUG DOSING (CG) 83.89 mL/min; ESTIMATED GFR 89.0 mL/min (>60); GLUCOSE RANDOM 169.0 mg/dL (70-99); POTASSIUM,K 5.0 mEq/L (3.5-5.1); PROTEIN TOTAL,TP 8.5 g/dl (6.4-8.2)
[2025-01-07 18:39] LABS: CHLORIDE,CL 82.0 mEq/L (98-107)
[2025-01-07 18:40] LABS: SODIUM,NA 116.0 mEq/L (136-145)
[2025-01-07] MEDS ORDERED: Naloxone 0.4 MG/ML SDV IVPUSH PRN ×3 (19:06→22:41)
[2025-01-07 19:12] LABS: ETHANOL BLOOD MEDICAL 0.0 gm% (0.00)
[2025-01-07 19:18] LABS: A/G RATIO 1.2 (1-2); ALANINE AMINOTRANSFERASE,ALT 36.0 U/L (14-59); ASPARTATE AMNIOTRANSFERASE,AST 25.0 U/L (15-37); BILIRUBIN TOTAL 0.6 mg/dL (0.2-1.0); BLOOD UREA NITROGEN,BUN 11.0 mg/dL (7-18); CARBON DIOXIDE,CO2 22.0 mEq/L (21-32); CHLORIDE,CL 83.0 mEq/L (98-107); CREATININE 0.7 mg/dL (0.55-1.02); EST CRCL DRUG DOSING (CG) 95.87 mL/min; ESTIMATED GFR 104.0 mL/min (>60); GLUCOSE RANDOM 170.0 mg/dL (70-99); POTASSIUM,K 4.9 mEq/L (3.5-5.1); PROTEIN TOTAL,TP 7.5 g/dl (6.4-8.2)
[2025-01-07] MEDS: Iopamidol 612 MG/ML 100 ML Bottle IVPUSH ONE (19:19)
[2025-01-07 19:20] LABS: SODIUM,NA 115.0 mEq/L (136-145)
[2025-01-07] MEDS: Sodium Chloride 0.9% 10 ML Syringe FLUSH PRN (19:20)
[2025-01-07] MEDS: Ondansetron 4 MG/2 ML SDV IVPUSH ONE (19:29)
[2025-01-07] MEDS: fentaNYL 100 MCG/2 ML SDV IVPUSH ONE ×2 (19:29→20:57)
[2025-01-07 19:32] LABS: OSMOLALITY,SERUM 254.0 mosm/kg (280-300)
[2025-01-07 19:49] LABS: OSMOLALITY,URINE 571 mosm/kg (400-1100)
[2025-01-07 21:17] LABS: LACTIC ACID 2.2 mmol/L (0.4-2.0)
[2025-01-07 21:56] LABS: BLOOD UREA NITROGEN,BUN 10.0 mg/dL (7-18); CARBON DIOXIDE,CO2 24.0 mEq/L (21-32); CHLORIDE,CL 85.0 mEq/L (98-107); CREATININE 0.5 mg/dL (0.55-1.02); EST CRCL DRUG DOSING (CG) 134.22 mL/min; ESTIMATED GFR 113.0 mL/min (>60); GLUCOSE RANDOM 179.0 mg/dL (70-99); POTASSIUM,K 5.0 mEq/L (3.5-5.1)
[2025-01-07 22:00] LABS: SODIUM,NA 116.0 mEq/L (136-145)
[2025-01-08] MEDS: Ketorolac 15 MG/ML SDV IVPUSH ONE (04:42)
[2025-01-08 06:39] LABS: BLOOD UREA NITROGEN,BUN 6.0 mg/dL (7-18); CARBON DIOXIDE,CO2 26.0 mEq/L (21-32); CHLORIDE,CL 90.0 mEq/L (98-107); CREATININE 0.5 mg/dL (0.55-1.02); EST CRCL DRUG DOSING (CG) 134.22 mL/min; ESTIMATED GFR 113.0 mL/min (>60); GLUCOSE RANDOM 153.0 mg/dL (70-99); POTASSIUM,K 4.2 mEq/L (3.5-5.1); SODIUM,NA 121.0 mEq/L (136-145)
[2025-01-08 11:44] LABS: BLOOD UREA NITROGEN,BUN 6.0 mg/dL (7-18); CARBON DIOXIDE,CO2 29.0 mEq/L (21-32); CHLORIDE,CL 93.0 mEq/L (98-107); CREATININE 0.4 mg/dL (0.55-1.02); EST CRCL DRUG DOSING (CG) 167.78 mL/min; ESTIMATED GFR 119.0 mL/min (>60); GLUCOSE RANDOM 137.0 mg/dL (70-99); POTASSIUM,K 4.5 mEq/L (3.5-5.1); SODIUM,NA 126.0 mEq/L (136-145)
[2025-01-08 14:32] LABS: BLOOD UREA NITROGEN,BUN 6.0 mg/dL (7-18); CARBON DIOXIDE,CO2 27.0 mEq/L (21-32); CHLORIDE,CL 93.0 mEq/L (98-107); CREATININE 0.5 mg/dL (0.55-1.02); EST CRCL DRUG DOSING (CG) 134.22 mL/min; ESTIMATED GFR 113.0 mL/min (>60); GLUCOSE RANDOM 229.0 mg/dL (70-99); POTASSIUM,K 4.2 mEq/L (3.5-5.1); SODIUM,NA 125.0 mEq/L (136-145)
[2025-01-08] MEDS ORDERED: LORazepam 2 MG/ML SDV IVPUSH PRN (15:34)
[2025-01-08] MEDS ORDERED: Ondansetron 4 MG/2 ML SDV IV PRN (15:37)
[2025-01-08] MEDS ORDERED: Sennosides/Docusate Sodium 50-8.6 MG Tab PO PRN (15:37)
[2025-01-08] MEDS ORDERED: 50% Dextrose in Water 50 ML Syringe IVPUSH PRN (16:08)
[2025-01-08] MEDS: Insulin Lispro 100 Unit/ML 3 ML KwikPen SUBCUT SCH (16:25)
[2025-01-08] MEDS: Venlafaxine 75 MG Cap.ER PO SCH (16:25)
[2025-01-08 18:44] LABS: BLOOD UREA NITROGEN,BUN 5.0 mg/dL (7-18); CARBON DIOXIDE,CO2 28.0 mEq/L (21-32); CHLORIDE,CL 95.0 mEq/L (98-107); CREATININE 0.7 mg/dL (0.55-1.02); EST CRCL DRUG DOSING (CG) 95.87 mL/min; ESTIMATED GFR 104.0 mL/min (>60); GLUCOSE RANDOM 235.0 mg/dL (70-99); PHOSPHORUS 2.9 mg/dL (2.6-4.7); POTASSIUM,K 4.0 mEq/L (3.5-5.1); SODIUM,NA 128.0 mEq/L (136-145)
[2025-01-08 22:25] LABS: BLOOD UREA NITROGEN,BUN 6.0 mg/dL (7-18); CARBON DIOXIDE,CO2 28.0 mEq/L (21-32); CHLORIDE,CL 96.0 mEq/L (98-107); CREATININE 0.7 mg/dL (0.55-1.02); EST CRCL DRUG DOSING (CG) 95.87 mL/min; ESTIMATED GFR 104.0 mL/min (>60); GLUCOSE RANDOM 125.0 mg/dL (70-99); SODIUM,NA 131.0 mEq/L (136-145)
[2025-01-08 22:26] LABS: POTASSIUM,K 3.8 mEq/L (3.5-5.1)
[2025-01-09 02:27] LABS: BLOOD UREA NITROGEN,BUN 6.0 mg/dL (7-18); CARBON DIOXIDE,CO2 28.0 mEq/L (21-32); CHLORIDE,CL 96.0 mEq/L (98-107); CREATININE 0.7 mg/dL (0.55-1.02); EST CRCL DRUG DOSING (CG) 95.87 mL/min; ESTIMATED GFR 104.0 mL/min (>60); GLUCOSE RANDOM 134.0 mg/dL (70-99); SODIUM,NA 131.0 mEq/L (136-145)
[2025-01-09 02:30] LABS: POTASSIUM,K 4.1 mEq/L (3.5-5.1)
[2025-01-09 06:16] LABS: BASOPHILS ABSOLUTE AUTO 0.0 K/mm3 (0.0-0.2); BASOPHILS PERCENT AUTO 0.8 % (0.0-1.0); EOSINOPHILS ABSOLUTE AUTO 0.4 K/mm3 (0.0-0.4); EOSINOPHILS PERCENT AUTO 8.3 % (0.0-6.0); IMMATURE GRAN ABSOLUTE AUTO 0.01 K/mm3 (0.00-0.05); IMMATURE GRAN PERCENT AUTO 0.2 % (0.0-0.4); LYMPHOCYTES ABSOLUTE AUTO 1.1 K/mm3 (1.0-4.8); LYMPHOCYTES PERCENT AUTO 21.2 % (24.0-44.0); MEAN PLATELET VOLUME 10.1 fl (9.4-12.3); MONOCYTES ABSOLUTE AUTO 0.4 K/mm3 (0.0-0.8); MONOCYTES PERCENT AUTO 7.5 % (0.0-8.0); NEUTROPHILS ABSOLUTE AUTO 3.1 K/mm3 (1.8-7.7); NEUTROPHILS PERCENT AUTO 62.0 % (41.0-71.0); NRBC ABSOLUTE 0.00 (0.00-0.02); NRBC PERCENT 0.0 % (0.0-0.2); RED BLOOD CELL COUNT 3.69 M/mm3 (4.10-5.30); WHITE BLOOD CELL COUNT,WBC 5.05 K/mm3 (3.9-11.3)
[2025-01-09 06:20] LABS: PLATELET COUNT,PLT 274 K/mm3 (150-400)
[2025-01-09 07:08] LABS: BLOOD UREA NITROGEN,BUN 6.0 mg/dL (7-18); CARBON DIOXIDE,CO2 26.0 mEq/L (21-32); CHLORIDE,CL 95.0 mEq/L (98-107); CREATININE 0.7 mg/dL (0.55-1.02); EST CRCL DRUG DOSING (CG) 95.73 mL/min; ESTIMATED GFR 104.0 mL/min (>60); GLUCOSE RANDOM 244.0 mg/dL (70-99); POTASSIUM,K 4.2 mEq/L (3.5-5.1); SODIUM,NA 130.0 mEq/L (136-145)
[2025-01-09 07:10] LABS: FOLIC ACID 27.3 ng/mL (8.6-58.9)
[2025-01-09 08:09] LABS: VITAMIN D,25-HYDROXY 24.0 ng/ml (30.0-100.0)
[2025-01-09] MEDS: Cyanocobalamin (Vitamin B12) 1,000 MCG Tab PO SCH (08:48)
[2025-01-09] MEDS: Cholecalciferol (Vitamin D3) 5,000 UNIT Cap PO SCH (09:06)
[2025-01-09 13:21] VITALS: PULSE 75
[2025-01-09 13:51] LABS: BLOOD UREA NITROGEN,BUN 5.0 mg/dL (7-18); CARBON DIOXIDE,CO2 30.0 mEq/L (21-32); CHLORIDE,CL 95.0 mEq/L (98-107); CREATININE 0.6 mg/dL (0.55-1.02); EST CRCL DRUG DOSING (CG) 111.68 mL/min; ESTIMATED GFR 108.0 mL/min (>60); GLUCOSE RANDOM 170.0 mg/dL (70-99); POTASSIUM,K 4.8 mEq/L (3.5-5.1); SODIUM,NA 131.0 mEq/L (136-145)
[2025-01-09 14:44] VITALS: BP 120/91
== END 2025-01-09 15:04 | disposition home or self-care (01) | DRG 640 ==
LOC: JD.ED 17:45 → JD.ICU 01-08 11:17
PROVIDERS: ADMIT Student in an Organized Health Care Education/Training Program; ATTEND Internal Medicine
DX: K85.90 Acute pancreatitis without necrosis or infection, unspecified (principal); E87.1 Hypo-osmolality and hyponatremia; K85.20 Alcohol induced acute pancreatitis without necrosis or infection; I82.890 Acute embolism and thrombosis of other specified veins; R56.9 Unspecified convulsions; F41.9 Anxiety disorder, unspecified; F32.A Depression, unspecified; E66.9 Obesity, unspecified; I10 Essential (primary) hypertension; K86.89 Other specified diseases of pancreas; E55.9 Vitamin D deficiency, unspecified; F10.10 Alcohol abuse, uncomplicated; Z88.0 Allergy status to penicillin; Z79.899 Other long term (current) drug therapy; Z86.16 Personal history of COVID-19; Z90.49 Acquired absence of other specified parts of digestive tract; Z68.20 Body mass index [BMI] 20.0-20.9, adult; Z79.84 Long term (current) use of oral hypoglycemic drugs; Z88.8 Allergy status to other drugs, medicaments and biological substances
CPT/HCPCS: 36415 ×2; 74177; 80048 ×2; 80053 ×2; 80307; 81003; 82533; 83605 ×2; 83690; 83930; 83935; 84300; 84443; 85025; 86140; 93005; 96361 ×2; 96374; 96375 ×2; 96376 ×2; 99285; J1171 ×2; J1885; J2405; J3010 ×2; J7030 ×3; Q9967; 82306; 82607; 82746; 82947; 83036; 83735; 84100; 84425; 99223; 99239; A9270-GY; J1650; J7070